=== PATIENT | male | born 1970 | race Caucasian/White ===

== ENCOUNTER 2017-10-21 07:11 | Emergency (ER) | payer BC ==
[2017-10-21] MEDS ORDERED: MORPHINE SULFATE INJ 10 MG/ML VIAL ONE (07:14)
[2017-10-21] MEDS ORDERED: MORPHINE SULFATE INJ 10 MG/ML VIAL IM ONE (07:20)
--- NOTE | 2017-10-21 08:00 | ED.PDOC ---
History of Present Illness - General Chief Complaint: Problem Stated Complaint: Plastic ring stuck around base of penis Time Seen by Provider: 10/21/17 07:56 Source: patient Exam Limitations: no limitations - History of Present Illness Initial Comments: PT REPORTS HAVING A RING STUCK AROUND THE BASE OF THE PENIS SINCE 10PM LAST NIGHT. PT C/O EXTREME PAIN AND SWELLING TO THE PENIS AND SCROTUM A RESULT OF THIS. Timing/Duration: getting worse Quality: severe, aching Allergies/Adverse Reactions: Allergies NO KNOWN ALLERGY Allergy (Verified 10/21/17 07:27) Review of Systems - Review of Systems Constitutional: Denies: chills, fever Respiratory: Denies: cough, short of breath Cardiology: Denies: chest pain, palpitations Gastrointestinal/Abdominal: Denies: nausea, vomiting Genitourinary: States: pain. Denies: dysuria, frequency Musculoskeletal: Denies: back pain, joint pain Skin: States: change in color. Denies: dryness Neurological: Denies: tremors, weakness Past Medical History (General) - Patient Medical History Hx Seizures: No Hx Stroke: No Hx Dementia: No Hx Asthma: No Hx of COPD: No Hx Cardiac Disorders: No Hx Congestive Heart Failure: No Hx Pacemaker: No Hx Hypertension: No Hx Thyroid Disease: No Hx Diabetes: No Hx Gastroesophageal Reflux: No Hx Renal Disease: No Hx of HIV: No Hx MRSA: No Surgical History: no surgical history Family Medical History - Family History Mother Family History: Unknown Physical Exam - Physical Exam General Appearance: Alert, Anxious, Obvious distress, Well Developed, Well Groomed, Well Hydrated Eyes, Ears, Nose, Throat Exam: PERRL/EOMI Male Genital Exam: other - ERYTHEMA, SWELLING, AND TENDERNESS TO THE GLANS AND SHAFT OF THE PENIS. APPROXIMATE 2CM DIAMETER YELLOW PLASTIC RING AROUND THE BASE OF PENIS. MODERATE SWELLING TO THE SCROTUM B/L. Neurologic: alert, normal mood/affect Skin Exam: normal color, warm/dry Lymphatic: no adenopathy Progress - Progress Progress: 10/21/17 07:30 RING WAS REMOVED USING RING CUTTER. PT WAS GIVEN 4MG IM MORPHINE FOR PAIN DURING THE PROCEDURE. 10/21/17 08:18 PT REPORTS SIGNIFICANT IMPROVEMENT IN PAIN, PENIS IS FLACID AND APPEARS NORMAL. PT STATES THAT SCROTAL SWELLING IS CHRONIC DUE TO A HYDROCELE. PT HAS NOT URINATED WHILE IN THE ED BUT STATES THAT HE WAS ABLE TO URINATE JUST PRIOR TO ARRIVAL IN THE ED. Procedures - Foreign Body Removal Foreign Body Removal: other - RING AROUND PENIS Foreign Body Physician Comment:: DR. MORGAN Departure - Departure Clinical Impression: Foreign body of penis, Hydrocele in adult Time of Disposition: 08:19 Disposition: Discharge to Home or Self Care Condition: Good Departure Forms: ED Discharge - Pt. Copy, Patient Portal Self Enrollment Instructions: DI for Removal of Foreign Body From Skin Referrals: CHARLY LIRIANO MD [Referring] - 1-2 Days
[2017-10-21 08:55] VITALS: BP 133/76; TEMP 97.2; O2SAT 98
== END 2017-10-21 08:52 | disposition home or self-care (01) ==
LOC: ER 07:11
DX: T19.4XXA Foreign body in penis, initial encounter (principal); N43.3 Hydrocele, unspecified; X58.XXXA Exposure to other specified factors, initial encounter; Y92.9 Unspecified place or not applicable

== ENCOUNTER → 2018-05-14 | Outpatient (CLI) | payer OTHER ==
--- NOTE | 2018-05-15 08:32 | RAD ---
Right elbow 2 views INDICATION: M 77.11 IMPRESSION: No fracture or dislocation. Mild osteoarthrosis of the elbow. No large effusion. Otherwise no acute process Electronically signed by: Donal Oliver MD 05/15/2018 8:31 AM [facility]
== END ==
LOC: RAD 16:08
PROVIDERS: ATTEND Nurse Practitioner Family
DX: M77.11 Lateral epicondylitis, right elbow (principal); M19.021 Primary osteoarthritis, right elbow